=== PATIENT | female | born 1950 | race Caucasian/White ===

== ENCOUNTER 2022-01-13 09:23 | Day surgery (SDC) | payer MEDICARE, OTHER ==
[~2022-01-13 09:23] MED LIST: ACETAZOLAMIDE 250 MG TABLET PO ONE; Ak-Dilate OPHTHALMIC*** 1.065 ML, Cyclogyl 1% OPHTH SOL 5 ML 1.065 ML, GATIFLOXACIN 0.5... OP ONE; BETADINE 5% OPHTHALMIC 30 ML OP ONE; Lactated Ringers 1,000 ML IV SCH; NON-FORMULARY ITEM OP ONE; TETRACAINE 0.5% STERI-UNIT SOL OP ONE; Zofran 4 MG/2 ML VIAL IV PRN; cefUROXime sodium 0.005 GM in Sodium Chloride Flush 30 ML*** 0.5 ML IJ ONE
[2022-01-13] MEDS ORDERED: LIDOCAINE HCL 1% 50 MG/5 ML VL PF IJ ONE ×2 (09:24)
[2022-01-13] MEDS ORDERED: Epinephrine Preservative Free 1 MG/ML IJ ONE ×2 (09:24)
[2022-01-13] MEDS ORDERED: Lactated Ringers 1,000 ML IV ONE (09:29)
[2022-01-13] MEDS ORDERED: DIPRIVAN 200 MG/20 ML IV ONE ×2 (11:37→11:54)
[2022-01-13 12:35] VITALS: BP 133/59; PULSE 81; O2SAT 97
== END 2022-01-13 12:49 | disposition home or self-care (01) ==
LOC: SDC 09:23
PROVIDERS: ATTEND Ophthalmology
DX: H25.811 Combined forms of age-related cataract, right eye (principal); I10 Essential (primary) hypertension; E78.00 Pure hypercholesterolemia, unspecified; M19.90 Unspecified osteoarthritis, unspecified site
CPT/HCPCS: 99100; C1780; J0171; J2001; J2704; A9270-GY

== ENCOUNTER 2022-02-17 08:28 | Day surgery (SDC) | payer MEDICARE, OTHER ==
[~2022-02-17 08:28] MED LIST changes: -ACETAZOLAMIDE 250 MG TABLET PO ONE; +Ak-Dilate OPHTHALMIC*** 1.065 ML, Cyclogyl 1% OPHTH SOL 1.065 ML, GATIFLOXACIN 0.5% OPH... OP ONE; -Ak-Dilate OPHTHALMIC*** 1.065 ML, Cyclogyl 1% OPHTH SOL 5 ML 1.065 ML, GATIFLOXACIN 0.5... OP ONE; -Zofran 4 MG/2 ML VIAL IV PRN
[2022-02-17] MEDS ORDERED: LIDOCAINE HCL 1% 50 MG/5 ML VL PF IJ ONE (09:00)
[2022-02-17] MEDS ORDERED: ACETAZOLAMIDE 250 MG TABLET PO ONE (09:00)
[2022-02-17] MEDS ORDERED: Zofran 4 MG/2 ML VIAL IV PRN (09:00)
[2022-02-17] MEDS ORDERED: Epinephrine Preservative Free 1 MG/ML IJ ONE (09:00)
[2022-02-17] MEDS ORDERED: Lactated Ringers 1,000 ML IV ONE (09:04)
[2022-02-17] MEDS ORDERED: DIPRIVAN 200 MG/20 ML IV ONE (10:36)
[2022-02-17 11:30] VITALS: BP 142/80; PULSE 81; O2SAT 97
== END 2022-02-17 11:31 | disposition home or self-care (01) ==
LOC: SDC 08:28
PROVIDERS: ATTEND Ophthalmology
DX: H25.812 Combined forms of age-related cataract, left eye (principal); I12.0 Hypertensive chronic kidney disease with stage 5 chronic kidney disease or end stage renal disease; N18.5 Chronic kidney disease, stage 5
CPT/HCPCS: 93005; 99100; C1780; J0171; J2001; J2704; A9270-GY